=== PATIENT | male | born 1990 | race Two or more races ===

== ENCOUNTER 2019-04-10 23:50 | Emergency (ER) | payer OTHER ==
[~2019-04-10] VITALS: Ht 190.5 cm; Wt 83.9 kg
[2019-04-11] MEDS ORDERED: INTESTINEX680 M1 PO (01:29)
[2019-04-11] MEDS ORDERED: KETO10TA2 PO (01:29)
[2019-04-11] MEDS ORDERED: AIRBORNE EFFER1 EACH PO (01:29)
[2019-04-11] MEDS ORDERED: ZITHROMAX500 MG PO (01:29)
== END 2019-04-11 02:01 | disposition home or self-care (01) ==
LOC: ER 23:50
DX: J31.2 Chronic pharyngitis (principal)